=== PATIENT | female | born 1940 | race African-American/Black ===

== ENCOUNTER → 2016-08-18 | Outpatient (CLI) | payer OTHER ==
[~2016-08-18] VITALS: Ht 147.3 cm; Wt 71.2 kg
[~2016-08-18] MED LIST: ASPIR 8181 MG PO; LEVEMIR SUBQ; LOSARTAN-HCTZ1 EAC3 PO; NORVASC5 MG PO; PIOGLITAZONE15 MG; SIMVASTATIN40 MG PO; TOPROL XL25 MG PO
--- NOTE | ~2016-08-18 | CATHLAB ---
[facility] [place] [email or web address] [address] INVASIVE PROCEDURE REPORT Name: ROSALIE NUNEZ MEDARDO [facility]: [id number] Admission: 08/18/16 Attend Phys: Donovan Ovalles MD Discharge: Date of : 40 Date of Service: 08/18/16 1119 Report #: [id number] THIS REPORT FOR: //name// CC: Donovan Harris DATE OF SERVICE: 08/18/2016 CARDIAC CATHETERZIATION REPORT INDICATIONS: Unstable angina, abnormal nuclear stress test. Full risks, benefits and alternatives of cardiac catheterization were explained to the patient. All questions were answered. Informed consent was obtained. A Barbeau test was performed on the right radial artery. The right wrist area was prepped and draped in a sterile manner. Lidocaine was given subcutaneously. A 5-Finnish sheath was inserted into the right radial artery via modified Seldinger technique. Nitroglycerin and verapamil was injected through the sheath. A 5000 units of heparin was given through peripheral IV. CORONARY ANATOMY: 1. The left main artery is a large caliber vessel with mild tapering at the distal segment. 2. The LAD is a moderate sized caliber vessel, travelling down the anterior wall and terminating at the apex. There were no flow-limiting lesions in the LAD or diagonal arteries. There may be some mild disease in the proximal segment, less than 10%. 3. The left circumflex artery gives off 1 moderate size obtuse marginal artery. There were no flow limiting lesions in the left circumflex artery. There is mild disease in the proximal segment of the left circumflex artery, 10%. The RCA is a dominant vessel, supplying a PDA and several posterolateral branches. There were no flow-limiting lesions in the RCA. A left ventriculogram was performed revealing normal LV systolic function, ejection fraction of 60%. The LVEDP is 60 mmHg. There is no gradient across the outflow tract. At the end of Vasc Band was applied for hemostasis. IMPRESSION: 1. Mild disease as described above. [facility] [address] [place] [address] INVASIVE PROCEDURE REPORT Name: ROSALIE NUNEZ Room #: REG [facility]#: [id number] Admission: 08/18/16 Attend Phys: Donovan Ovalles MD Discharge: Date of : 40 Date of Service: 08/18/16 1119 Report #: [id number] 2. Normal LV systolic function. 3. Recommend medical therapy. <ELECTRONICALLY SIGNED> By: Donovan Ovalles MD 08/19/16 0807 1119 1218 Donovan Ovalles MD /nt
--- NOTE | ~2016-08-18 | EKG ---
[address] [address] ELECTROCARDIOGRAM REPORT Name: ROSALIE NUNEZ [facility]: [facility] [id number] Admission: 08/18/16 Attend Phys: Donovan Ovalles MD Discharge: Date of : 40 Report #: [id number] THIS REPORT FOR: //name// [facility] Test Date: 2016-08-18 Test Time: 09:03:38 Pat Name: ROSALIE NUNEZ Department: Room: Gender: F Credit Rating Inspector: Dahiana MCKEON : 1940 Requested By: Donovan Ovalles Order Number: [id number] MD: Dain Sena Measurements Intervals [place] Rate: 60 P: 8 DE: 145 QRS: 43 QRSD: 81 T: 21 QT: 404 QTc: 404 Interpretive Statements Sinus rhythm Normal tracing No previous ECG available for comparison Electronically Signed On 08-19-2016 8:51:21 [employer] by Dain Sena [email or web address] <ELECTRONICALLY SIGNED> By: Dain Sena MD, [facility] 08/19/16 0851 0903 2 Dain Sena MD, FACC /EPI
[2016-08-18 08:54] LABS: HEMATOCRIT 37.1 % (37.0-47.0); HEMOGLOBIN 12.3 gm/dL (12.0-15.0); MCH 28.7 pg (26.0-34.0); MCHC 33.1 % (28.0-37.0); MCV 86.6 fL (80.0-100.0); RBC 4.29 mil/uL (4.20-5.00); RDW 14.6 % (10.5-14.5); WBC 6.3 thou/uL (4.0-11.0)
[2016-08-18 09:28] LABS: ANION GAP 6 mmol/L (7-16); BUN 19 mg/dL (7-18); CALCIUM 9.3 mg/dL (8.5-10.1); CHLORIDE 107 mmol/L (98-107); CO2 30 mmol/L (21-32); GLUCOSE 90 mg/dL (70-99); POTASSIUM 3.8 mmol/L (3.5-5.1); SODIUM 143 mmol/L (136-145)
[2016-08-18 09:35] LABS: CHOLESTEROL 160 mg/dL (<200); HDL CHOLESTEROL 67 mg/dL (>40); LDL CHOLESTEROL 86 mg/dL (<100); TC:HDL 2.4 Ratio (Not establshd); TRIGLYCERIDE 39 mg/dL (<150); VLDL 8 mg/dL (<40)
== END ==
LOC: CATH 08:10
PROVIDERS: Internal Medicine Cardiovascular Disease
DX: I20.0 Unstable angina (principal); R94.39 Abnormal result of other cardiovascular function study; I10 Essential (primary) hypertension; E78.5 Hyperlipidemia, unspecified; E11.9 Type 2 diabetes mellitus without complications; M19.90 Unspecified osteoarthritis, unspecified site

== ENCOUNTER → 2019-12-21 | Outpatient (CLI) | payer OTHER | LOC: SJCVC 13:18 | DX: R94.31 Abnormal electrocardiogram [ECG] [EKG] (principal); I25.10 Atherosclerotic heart disease of native coronary artery without angina pectoris; I10 Essential (primary) hypertension; E78.00 Pure hypercholesterolemia, unspecified; E11.9 Type 2 diabetes mellitus without complications; Z79.899 Other long term (current) drug therapy ==

== ENCOUNTER → 2021-01-01 | Outpatient (CLI) | payer OTHER | LOC: SJCVCIMAG 12-20 08:53 | PROVIDERS: ATTEND Internal Medicine Cardiovascular Disease | DX: I25.10 Atherosclerotic heart disease of native coronary artery without angina pectoris (principal); R00.0 Tachycardia, unspecified; I10 Essential (primary) hypertension; E78.00 Pure hypercholesterolemia, unspecified; E78.5 Hyperlipidemia, unspecified; Z98.890 Other specified postprocedural states; Z88.8 Allergy status to other drugs, medicaments and biological substances; Z79.82 Long term (current) use of aspirin; Z79.4 Long term (current) use of insulin; Z79.899 Other long term (current) drug therapy; Z82.49 Family history of ischemic heart disease and other diseases of the circulatory system ==